=== PATIENT | female | born 1980 | race Asian ===

== ENCOUNTER 2024-11-04 21:32 | Emergency (ER) | payer OTHER ==
[2024-11-04 21:40] VITALS: TEMP 97.7; BMI 31.4
[2024-11-04] MEDS ORDERED: ONDANSETRON *ODT* 4 MG TABLET ONE (22:22)
[2024-11-04] MEDS ORDERED: ACETAMINOPHEN 325 MG TABLET (FP) ONE (22:22)
[2024-11-04] MEDS: ACETAMINOPHEN 325 MG TABLET (FP) PO ONE (22:25)
[2024-11-04] MEDS: ONDANSETRON *ODT* 4 MG TABLET SL ONE (22:26)
[2024-11-04 23:02] VITALS: BP 125/80; PULSE 96; RESP 19
== END 2024-11-04 23:02 | disposition home or self-care (01) ==
LOC: JER 21:32
DX: M25.512 Pain in left shoulder (principal); I10 Essential (primary) hypertension; R20.0 Anesthesia of skin; R11.0 Nausea
CPT/HCPCS: 93005; 93010; 99283-25; Q0162